=== PATIENT | female | born 1975 | race Caucasian/White ===

== ENCOUNTER 2016-08-30 16:25 | Emergency (ER) | payer BC ==
[2016-08-30] MEDS ORDERED: NS 0.9% 1000 ML* 1,000 ML IV ONE (17:43)
[2016-08-30] MEDS ORDERED: Pantoprazole IV* 40 MG IV ONE (17:44)
[2016-08-30] MEDS ORDERED: Sucralfate TAB* 1 GM PO ONE (17:44)
[2016-08-30 17:57] LABS: Hematocrit 40 % (35-47); Hemoglobin 13.6 g/dl (12.0-16.0); Mean Corpuscular HGB Conc 34 g/dl (31-36); Mean Corpuscular Hemoglobin 31 pg (27-31); Mean Corpuscular Volume 92 fL (80-97); Mean Platelet Volume 9 um3 (7.4-10.4); Red Blood Count 4.37 10^6/ul (4.0-5.4); Red Cell Distribution Width 15 % (10.5-15); White Blood Count 14.4 10^3/ul (3.5-10.8)
[2016-08-30 18:07] LABS: Urine Bacteria 1+ (Absent); Urine Bilirubin Negative (Negative); Urine Glucose Negative (Negative); Urine Nitrite Positive (Negative)
[2016-08-30 18:09] LABS: Troponin I 0.03 ng/mL (<0.04)
[2016-08-30 18:10] LABS: Albumin 3.7 g/dL (3.2-5.2); C Reactive Protein 3.26 mg/L (< 5.00); EGFR African American 137.7 (>60); Potassium 3.2 mmol/L (3.5-5.0); Total Bilirubin 0.3 mg/dL (0.2-1.0); Total Protein 6.7 g/dL (6.4-8.9)
--- NOTE | 2016-08-30 20:12 | ED ---
Demetrice Marcano Janilya, scribed for Ernie Knight MD on 08/30/16 at 1738 . Abdominal Pain/Female - HPI Summary HPI Summary: A 41 y/[facility] w/ a gradual onset of intermittent CP that started a week and a half ago. It hurts to palpation and it radiates down to her chest and changes in character from dull and achy to sharp and burning. Pt reports CP has worsened in the last couple days. Pt also feels nauseated and has not eaten well recently. She vomits every time she has a food intake. Pt is currently on her period. PMHx asthma, arthritis, anxiety. - History of Current Complaint Chief Complaint: EDChestPainROMI Stated Complaint: CHEST PAIN Time Seen by Provider: 08/30/16 17:30 Hx Obtained From: Patient Hx Last Menstrual Period: current Onset/Duration: Gradual Onset, Lasting Days, Still Present Timing: Constant Severity Initially: Moderate Severity Currently: Moderate Pain Intensity: 8 Pain Scale Used: 0-10 Numeric Radiates: No Allergies/Adverse Reactions: Allergies Allergy/AdvReac Type Severity Reaction Status Date / Time Bee Venom Allergy Severe Anaphylatic Verified 03/10/16 18:40 Shock Eggs or Egg-derived Products Allergy Severe Anaphylatic Verified 03/10/16 18:40 Shock Peanut Oil Allergy Severe Anaphylatic Verified 03/10/16 18:40 Shock Raspberry Allergy Anaphylatic Verified 03/10/16 18:40 Shock mycin based meds Allergy Eyes Uncoded 05/13/16 17:19 Itchy/Swollen/Red/Watery PMH/Surg Hx/FS Hx/Imm Hx Endocrine/Hematology History: Denies: Hx Anticoagulant Therapy, Hx Diabetes, Hx Thyroid Disease Cardiovascular History: Denies: Hx Congestive Heart Failure, Hx Deep Vein Thrombosis, Hx Hypertension , Hx Myocardial Infarction, Hx Pacemaker/ICD Respiratory History: Reports: Hx Asthma Denies: Hx Chronic Obstructive Pulmonary Disease (COPD), Hx Lung Cancer, Hx Pneumonia, Hx Pulmonary Embolism GI History: Denies: Hx Gall Bladder Disease, Hx Gastrointestinal Bleed, Hx Ulcer, Hx Urosepsis History: Denies: Hx Kidney Stones, Hx Renal Disease Sensory History: Reports: Hx Contacts or Glasses Opthamlomology History: Reports: Hx Contacts or Glasses Neurological History: Denies: Hx Dementia, Hx Migraine, Hx Seizures, Hx Transient Ischemic Attacks (TIA) Psychiatric History: Reports: Hx Anxiety - On hydroxyzine. Denies: Hx Depression, Hx Schizophrenia, Hx Bipolar Disorder - Surgical History Surgery Procedure, Year, and Place: 1999 TUBAL LIGATION Infectious Disease History: Yes Infectious Disease History: Reports: Hx of Known/Suspected MRSA - skin infection Denies: Hx Clostridium Difficile, Hx Hepatitis, Hx Human Immunodeficiency Virus (HIV), Hx Shingles, Hx Tuberculosis, History Other Infectious Disease, Traveled Outside the [place] in Last 30 Days - Family History Known Family History: Positive: Hypertension Negative: Cardiac Disease - Social History Alcohol Use: None Substance Use Type: Reports: None Substance Use Comment - Amount & Last Used: None x 5 years Smoking Status (MU): Light Every Day Tobacco Smoker Type: Cigarettes Amount Used/How Often: about 1/2 ppd Review of Systems Positive: Abdominal Pain, Vomiting, Nausea All Other Systems Reviewed And Are Negative: Yes Physical Exam Triage Information Reviewed: Yes Vital Signs On Initial Exam: Initial Vitals Temp Pulse Resp BP Pulse Ox 97.8 F 80 16 141/70 95 08/30/16 16:26 08/30/16 16:26 08/30/16 16:26 08/30/16 16:26 08/30/16 16:26 Vital Signs Reviewed: Yes Appearance: Positive: Well-Appearing, No Pain Distress Skin: Positive: Warm, Skin Color Reflects Adequate Perfusion, Dry Head/Face: Positive: Normal Head/Face Inspection Eyes: Positive: Normal ENT: Positive: Normal ENT inspection Neck: Positive: Supple, Nontender Respiratory/Lung Sounds: Positive: Clear to Auscultation, Breath Sounds Present Cardiovascular: Positive: RRR Abdomen Description: Negative: Nontender - Tenderness in epigastrium and in LUQ and RUQ Bowel Sounds: Positive: Present Musculoskeletal: Positive: Normal Neurological: Positive: Normal Psychiatric: Positive: Normal, Affect/Mood Appropriate - [place] Coma Scale Coma Scale Total: 15 Diagnostics - Vital Signs Vital Signs Temp Pulse Resp BP Pulse Ox 08/30/16 16:26 97.8 F 80 16 141/70 95 - Laboratory Lab Results: Lab Results 08/30/16 08/30/16 08/30/16 Range/Units 17:20 17:20 17:20 WBC 14.4 H (3.5-10.8) 10^3/ul RBC 4.37 (4.0-5.4) 10^6/ul Hgb 13.6 (12.0-16.0) g/dl Hct 40 (35-47) % MCV 92 (80-97) fL MCH 31 (27-31) pg MCHC 34 (31-36) g/dl RDW 15 (10.5-15) % Plt Count 252 (150-450) 10^3/ul MPV 9 (7.4-10.4) um3 Neut % (Auto) 74.6 (38-83) % Lymph % (Auto) 16.3 L (25-47) % [place] % (Auto) 7.5 (1-9) % Eos % (Auto) 1.1 (0-6) % Baso % (Auto) 0.5 (0-2) % Absolute Neuts (auto) 10.7 H (1.5-7.7) 10^3/ul Absolute Lymphs (auto) 2.3 (1.0-4.8) 10^3/ul Absolute Monos (auto) 1.1 H (0-0.8) 10^3/ul Absolute Eos (auto) 0.2 (0-0.6) 10^3/ul Absolute Basos (auto) 0.1 (0-0.2) 10^3/ul Absolute Nucleated RBC 0.01 10^3/ul Nucleated RBC % 0 Sodium 137 (133-145) mmol/L Potassium 3.2 L (3.5-5.0) mmol/L Chloride 105 (101-111) mmol/L Carbon Dioxide 28 (22-32) mmol/L Anion Gap 4 (2-11) mmol/L BUN 11 (6-24) mg/dL Creatinine 0.61 (0.51-0.95) mg/dL Est GFR ( Amer) 137.7 (>60) Est GFR (Non-Af Amer) 107.0 (>60) BUN/Creatinine Ratio 18.0 (8-20) Glucose 84 (70-100) mg/dL Lactic Acid (0.5-2.0) mmol/L Calcium 9.0 (8.6-10.3) mg/dL Total Bilirubin 0.30 (0.2-1.0) mg/dL AST 16 (13-39) U/L ALT 12 (7-52) U/L Alkaline Phosphatase 46 (34-104) U/L Troponin I 0.03 (<0.04) ng/mL C-Reactive Protein 3.26 (< 5.00) mg/L Total Protein 6.7 (6.4-8.9) g/dL Albumin 3.7 (3.2-5.2) g/dL Globulin 3.0 (2-4) g/dL Albumin/Globulin Ratio 1.2 (1-3) Lipase 27 (11.0-82.0) U/L Urine Color Yellow Urine Appearance Clear Urine pH 6.0 (5-9) Ur Specific [place] 1.008 L (1.010-1.030) Urine Protein Negative (Negative) Urine Ketones Negative (Negative) Urine Blood 1+ H (Negative) Urine Nitrate Positive H (Negative) Urine Bilirubin Negative (Negative) Urine Urobilinogen Negative (Negative) Ur Leukocyte Esterase 1+ H (Negative) Urine WBC (Auto) 1+(6-10/hpf) H (Absent) Urine RBC (Auto) Trace(0-2/hpf) (Absent) Ur Squamous Epith Cells Present H (Absent) Urine Bacteria 1+ H (Absent) Urine Glucose Negative (Negative) 08/30/16 Range/Units 17:20 WBC (3.5-10.8) 10^3/ul RBC (4.0-5.4) 10^6/ul Hgb (12.0-16.0) g/dl Hct (35-47) % MCV (80-97) fL MCH (27-31) pg MCHC (31-36) g/dl RDW (10.5-15) % Plt Count (150-450) 10^3/ul MPV (7.4-10.4) um3 Neut % (Auto) (38-83) % Lymph % (Auto) (25-47) % [place] % (Auto) (1-9) % Eos % (Auto) (0-6) % Baso % (Auto) (0-2) % Absolute Neuts (auto) (1.5-7.7) 10^3/ul Absolute Lymphs (auto) (1.0-4.8) 10^3/ul Absolute Monos (auto) (0-0.8) 10^3/ul Absolute Eos (auto) (0-0.6) 10^3/ul Absolute Basos (auto) (0-0.2) 10^3/ul Absolute Nucleated RBC 10^3/ul Nucleated RBC % Sodium (133-145) mmol/L Potassium (3.5-5.0) mmol/L Chloride (101-111) mmol/L Carbon Dioxide (22-32) mmol/L Anion Gap (2-11) mmol/L BUN (6-24) mg/dL Creatinine (0.51-0.95) mg/dL Est GFR ( Amer) (>60) Est GFR (Non-Af Amer) (>60) BUN/Creatinine Ratio (8-20) Glucose (70-100) mg/dL Lactic Acid 0.3 L (0.5-2.0) mmol/L Calcium (8.6-10.3) mg/dL Total Bilirubin (0.2-1.0) mg/dL AST (13-39) U/L ALT (7-52) U/L Alkaline Phosphatase (34-104) U/L Troponin I (<0.04) ng/mL C-Reactive Protein (< 5.00) mg/L Total Protein (6.4-8.9) g/dL Albumin (3.2-5.2) g/dL Globulin (2-4) g/dL Albumin/Globulin Ratio (1-3) Lipase (11.0-82.0) U/L Urine Color Urine Appearance Urine pH (5-9) Ur Specific [place] (1.010-1.030) Urine Protein (Negative) Urine Ketones (Negative) Urine Blood (Negative) Urine Nitrate (Negative) Urine Bilirubin (Negative) Urine Urobilinogen (Negative) Ur Leukocyte Esterase (Negative) Urine WBC (Auto) (Absent) Urine RBC (Auto) (Absent) Ur Squamous Epith Cells (Absent) Urine Bacteria (Absent) Urine Glucose (Negative) Result Diagrams: 08/30/16 17:20 08/30/16 17:20 Lab Statement: Any lab studies that have been ordered have been reviewed, and results considered in the medical decision making process. - EKG 1633 Cardiac Rate: NL - at 68 bpm EKG Rhythm: Sinus Rhythm Abdominal Pain Fem Course/Dx - Course Course Of Treatment: Vanna Hall presented with several days of epigastric pain and nausea. She was quite tender in the epigastriom. She was rehydrated, treated symptomatically and her labs were checked. Her W/U was negative and she felt improved after meds and I will give her prilosec for a few days to see if that improves the situation. Her urine came back positive for nitrates but she is compleetely asymptomatic and we decided to wait for C&S. - Diagnoses Provider Diagnoses: Epigastric abdominal pain Discharge - Discharge Plan Condition: Stable Disposition: HOME Prescriptions: Omeprazole CAP* [Prilosec CAP* 20 MG] 20 mg PO BID #20 cap.dr Patient Education Materials: Epigastric Pain (ED) Referrals: Rob Flores MD [Primary Care Provider] - Additional Instructions: Your urine culture was sent to lab. If the result shows that you need antibiotics, you will be contacted. Follow up with your primary care provider if symptoms persist or worsen. The documentation as recorded by the Demetrice mccarty Janilya accurately reflects the service I personally performed and the decisions made by me, Ernie Knight MD.
[2016-08-30 21:33] VITALS: BP 102/57
--- NOTE | 2016-09-02 08:35 | PN ---
Progress Note - Progress Note Note: Patient discharged on Bactrim, which is sensitive on cultures. No further action needed.
== END 2016-08-30 21:33 | disposition home or self-care (01) ==
LOC: ED 16:25
DX: R10.13 Epigastric pain (principal); R07.9 Chest pain, unspecified; R11.0 Nausea
CPT/HCPCS: 36415; 80053; 81003; 81015; 83605; 83690; 84484; 85025; 86140; 86703; 87077; 87086; 87186; 93005; 96361; 96374; 99283; A9270-GY

== ENCOUNTER 2017-05-07 17:47 | Emergency (ER) | payer SELFPAY ==
[2017-05-07] MEDS ORDERED: Ketorolac INJ* 30 MG/ML 1 ML VIAL IV ONE (19:25)
[2017-05-07] MEDS ORDERED: Ondansetron INJ* 2 MG/ML VIAL IV ONE (19:25)
[2017-05-07] MEDS: NS 0.9% 1000 ML* 2,000 ML IV ONE ×2 (19:34→19:35)
[2017-05-07 19:49] LABS: Hematocrit 37 % (35-47); Hemoglobin 12.2 g/dl (12.0-16.0); Mean Corpuscular HGB Conc 33 g/dl (31-36); Mean Corpuscular Hemoglobin 26 pg (27-31); Mean Corpuscular Volume 80 fL (80-97); Mean Platelet Volume 8 um3 (7.4-10.4); Red Blood Count 4.66 10^6/ul (4.0-5.4); Red Cell Distribution Width 22 % (10.5-15); White Blood Count 20.9 10^3/ul (3.5-10.8)
[2017-05-07 19:50] LABS: Add Diff/Slide Review? Slide Review Added; Comments Flag Yes
[2017-05-07 20:06] LABS: Urine Bacteria 1+ (Absent); Urine Bilirubin Negative (Negative); Urine Glucose Negative (Negative); Urine Nitrite Negative (Negative)
[2017-05-07 20:07] LABS: ALT 13 U/L (7-52); AST 18 U/L (13-39); Albumin 3.6 g/dL (3.2-5.2); Alkaline Phosphatase 78 U/L (34-104); Anion Gap 11 mmol/L (2-11); BUN/Creatinine Ratio 13.5 (8-20); Blood Urea Nitrogen 12 mg/dL (6-24); C Reactive Protein 198.74 mg/L (< 5.00); CO2 Carbon Dioxide 26 mmol/L (22-32); Calcium 8.9 mg/dL (8.6-10.3); Chloride 94 mmol/L (101-111); EGFR African American 88.6 (>60); EGFR Non-African American 68.9 (>60); Globulin 4.2 g/dL (2-4); Glucose 99 mg/dL (70-100); Lipase < 10 U/L (11.0-82.0); Potassium 2.8 mmol/L (3.5-5.0); Sodium 131 mmol/L (133-145); Total Protein 7.8 g/dL (6.4-8.9)
[2017-05-07 20:31] LABS: Hypochromasia 1+; Immature Granulocytes 22 % (0-9); Neutrophil % 56 % (38-83)
[2017-05-07] MEDS ORDERED: cefTRIAXone(*) 1 GM in NS 0.9% 50 ML* 50 ML IVPB ONE (20:33)
[2017-05-07] MEDS ORDERED: NS 0.9% 1000 ML* 2,000 ML IV ONE (21:04)
--- NOTE | 2017-05-07 21:36 | RAD ---
INDICATION: Bilateral flank pain, fever and urinary tract infection. COMPARISON: Comparison is made with a prior CT of the abdomen and pelvis from March 08, 2012. TECHNIQUE: A CT scan of the abdomen and pelvis was performed without intravenous or oral contrast. Contiguous axial sections were obtained from the lung bases through the symphysis pubis. Images were reconstructed in the coronal and sagittal planes. FINDINGS: The lung bases are clear. No pleural effusion is present. The liver appears mildly enlarged. The spleen is within normal limits in size. No significant focal abnormality is seen on this noncontrast study. The gallbladder appears contracted. No calcified gallstones are seen. The pancreas is normal in size. The adrenal glands appear to be within normal limits. The left kidney appears normal. The right kidney appears enlarged. There is perinephric stranding. No renal calculi or hydronephrosis is seen. No ureteral or bladder calculi are seen. The aorta is normal in caliber with mild calcific plaque present. There are mildly prominent retroperitoneal lymph nodes in the left periaortic region. The stomach, small and large bowel appear nondistended. The appendix is not well visualized. There is an oval-shaped calcific density in the right lower quadrant likely representing a pill within the bowel. There is no evidence for diverticulitis or colitis. The uterus is normal in size and retroverted. There is a trace amount of free intraperitoneal fluid present dependently within the pelvis. No free intraperitoneal air is seen. No significant focal osseous abnormality is seen. IMPRESSION: 1. THERE IS ENLARGEMENT OF THE RIGHT KIDNEY WITH PERINEPHRIC STRANDING SUSPICIOUS FOR PYELONEPHRITIS LESS LIKELY RECENT PASSAGE OF A CALCULUS. RECOMMEND CLINICAL CORRELATION. 2. MILDLY PROMINENT RETROPERITONEAL LYMPH NODES IN THE UPPER ABDOMEN.
[2017-05-07 21:59] VITALS: BP 113/66
[2017-05-07] MEDS ORDERED: Potassium Chlor TAB* 20 MEQ TAB.ER PO ONE (22:17)
[2017-05-07] MEDS ORDERED: Sulfamethox/Trimethoprim DS 800/160* TAB PO ONE ×2 (22:31)
--- NOTE | 2017-05-07 22:37 | ED ---
Dea Marcano Thomas, scribed for Derek Bauer MD on 05/07/17 at 1923 . GI/ HPI - HPI Summary HPI Summary: The pt is a 42 y/o F presenting to the ED c/o generalized malaise that began four days ago. She then developed dysuria and urinary frequency three days ago. Pt additionally c/o fever, chills, bilateral flank pain, productive cough, fatigue, chest congestion, rhinorrhea, lightheadedness (onset this afternoon), myalgia (onset this AM), CARRILLO (onset two days ago), and RLQ abd pain. She complains of neck pain that is aggravated by movement. The pt rates her pain level 6/10. She has been taking ibuprofen for her pain. She has experienced nausea and vomiting for the last three days and she cannot keep anything down. She is chronically constipated and takes Miralax every day. Pt denies bloody stools and vaginal discharge. There is no Hx of kidney stones or abdominal surgeries. LNMP 2 weeks ago. 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 - History of Current Complaint Chief Complaint: EDAbdPain Time Seen by Provider: 05/07/17 19:11 Stated Complaint: VOMITING/ABD PAIN Hx Obtained From: Patient Hx Last Menstrual Period: current Onset/Duration: Started Days Ago - malaise onset four days ago, Still Present, Worse Since - progressively worse Timing: Constant Current Severity: Moderate Pain Intensity: 6 Associated Signs and Symptoms: Positive: Nausea, Vomiting, Constipation - chronically, Fever, Dysuria, Flank Pain - bilateral, Chills, Lightheadedness, Abdominal Pain - RLQ, Cough - productive, Other: - Fatigue, chest congestion, rhinorrhea, myalgia, CARRILLO, neck pain. Negative: Discharge, Blood w/Stool Aggravating Factor(s): Nothing Alleviating Factor(s): Nothing - Allergy/Home Medications Allergies/Adverse Reactions: Allergies Allergy/AdvReac Type Severity Reaction Status Date / Time Bee Venom Allergy Severe Anaphylatic Verified 03/10/16 18:40 Shock Eggs or Egg-derived Products Allergy Severe Anaphylatic Verified 03/10/16 18:40 Shock Peanut Oil Allergy Severe Anaphylatic Verified 03/10/16 18:40 Shock Raspberry Allergy Anaphylatic Verified 03/10/16 18:40 Shock mycin based meds Allergy Eyes Uncoded 05/13/16 17:19 Itchy/Swollen/Red/Watery PMH/Surg Hx/FS Hx/Imm Hx Previously Healthy: No Endocrine/Hematology History: Denies: Hx Anticoagulant Therapy, Hx Diabetes, Hx Thyroid Disease Cardiovascular History: Denies: Hx Congestive Heart Failure, Hx Deep Vein Thrombosis, Hx Hypertension , Hx Myocardial Infarction, Hx Pacemaker/ICD Respiratory History: Reports: Hx Asthma Denies: Hx Chronic Obstructive Pulmonary Disease (COPD), Hx Lung Cancer, Hx Pneumonia, Hx Pulmonary Embolism GI History: Denies: Hx Gall Bladder Disease, Hx Gastrointestinal Bleed, Hx Ulcer, Hx Urosepsis History: Denies: Hx Kidney Stones, Hx Renal Disease Sensory History: Reports: Hx Contacts or Glasses Opthamlomology History: Reports: Hx Contacts or Glasses Neurological History: Denies: Hx Dementia, Hx Migraine, Hx Seizures, Hx Transient Ischemic Attacks (TIA) Psychiatric History: Reports: Hx Anxiety - On hydroxyzine. Denies: Hx Depression, Hx Schizophrenia, Hx Bipolar Disorder - Surgical History Surgery Procedure, Year, and Place: 1999 TUBAL LIGATION Infectious Disease History: No Infectious Disease History: Reports: Hx of Known/Suspected MRSA - skin infection Denies: Hx Clostridium Difficile, Hx Hepatitis, Hx Human Immunodeficiency Virus (HIV), Hx Shingles, Hx Tuberculosis, History Other Infectious Disease, Traveled Outside the [place] in Last 30 Days - Family History Known Family History: Positive: Hypertension Negative: Cardiac Disease - Social History Alcohol Use: None Hx Substance Use: No Substance Use Type: Reports: None Substance Use Comment - Amount & Last Used: None x 5 years Hx Tobacco Use: Yes Smoking Status (MU): Light Every Day Tobacco Smoker Type: Cigarettes Amount Used/How Often: about 1/2 ppd Review of Systems Positive: Fever, Chills, Fatigue Positive: Nasal Discharge Positive: Cough - productive, Other - Chest congestion Positive: Abdominal Pain - RLQ, Vomiting, Nausea, Other - Chronic constipation; NEGATIVE: bloody stools Positive: dysuria, flank pain - bilateral, other - Bilateral flank pain. Negative: discharge Positive: Myalgia, Other - Neck pain aggravated by movement Neurological: Other - Lightheadedness All Other Systems Reviewed And Are Negative: Yes Physical Exam Triage Information Reviewed: Yes Vital Signs On Initial Exam: Initial Vitals Temp Pulse Resp BP Pulse Ox 100.6 F 88 20 130/66 100 05/07/17 17:54 05/07/17 17:54 05/07/17 17:54 05/07/17 17:54 05/07/17 17:54 Vital Signs Reviewed: Yes Appearance: Positive: No Pain Distress, Ill-Appearing - mildly to moderately Skin: Positive: Warm, Skin Color Reflects Adequate Perfusion, Dry Head/Face: Positive: Normal Head/Face Inspection Eyes: Positive: EOMI, CELESTE ENT: Positive: Normal ENT inspection Neck: Positive: Supple, Nontender Respiratory/Lung Sounds: Positive: Clear to Auscultation, Breath Sounds Present Cardiovascular: Positive: RRR Abdomen Description: Positive: Soft, CVA Tenderness (R), CVA Tenderness (L), Other: - There is mild lower abdominal tenderness. Bowel Sounds: Positive: Present Musculoskeletal: Positive: Normal, Strength/ROM Intact Neurological: Positive: Normal, Sensory/Motor Intact, Alert, Oriented to Person Place, Time Psychiatric: Positive: Affect/Mood Appropriate - [place] Coma Scale Coma Scale Total: 15 Diagnostics - Vital Signs Vital Signs Temp Pulse Resp BP Pulse Ox 05/07/17 17:54 100.6 F 88 20 130/66 100 - Laboratory Lab Results: Lab Results 05/07/17 05/07/17 05/07/17 Range/Units 19:25 19:30 19:30 WBC 20.9 H (3.5-10.8) 10^3/ul RBC 4.66 (4.0-5.4) 10^6/ul Hgb 12.2 (12.0-16.0) g/dl Hct 37 (35-47) % MCV 80 (80-97) fL MCH 26 L (27-31) pg MCHC 33 (31-36) g/dl RDW 22 H (10.5-15) % Plt Count 274 (150-450) 10^3/ul MPV 8 (7.4-10.4) um3 Immature Gran % (Auto) 22 H (0-9) % Neut % (Auto) 80.8 (38-83) % Lymph % (Auto) 6.9 L (25-47) % [place] % (Auto) 11.2 H (1-9) % Eos % (Auto) 0.3 (0-6) % Baso % (Auto) 0.8 (0-2) % Absolute Neuts (auto) 16.9 H (1.5-7.7) 10^3/ul Absolute Lymphs (auto) 1.5 (1.0-4.8) 10^3/ul Absolute Monos (auto) 2.4 H (0-0.8) 10^3/ul Absolute Eos (auto) 0.1 (0-0.6) 10^3/ul Absolute Basos (auto) 0.2 (0-0.2) 10^3/ul Absolute Nucleated RBC 0.01 10^3/ul Neutrophils % 56 (38-83) % Band Neutrophils % 22 H (0-8) % Lymphocytes % 7 L (25-47) % Monocytes % 14 H (0-13) % Basophils % 1 (0-2) % Nucleated RBC % 0 Normal RBC Morphology Not Reportable Hypochromasia 1+ Sodium 131 L (133-145) mmol/L Potassium 2.8 L (3.5-5.0) mmol/L Chloride 94 L (101-111) mmol/L Carbon Dioxide 26 (22-32) mmol/L Anion Gap 11 (2-11) mmol/L BUN 12 (6-24) mg/dL Creatinine 0.89 (0.51-0.95) mg/dL Est GFR ( Amer) 88.6 (>60) Est GFR (Non-Af Amer) 68.9 (>60) BUN/Creatinine Ratio 13.5 (8-20) Glucose 99 (70-100) mg/dL Lactic Acid (0.5-2.0) mmol/L Calcium 8.9 (8.6-10.3) mg/dL Total Bilirubin 0.40 (0.2-1.0) mg/dL AST 18 (13-39) U/L ALT 13 (7-52) U/L Alkaline Phosphatase 78 (34-104) U/L C-Reactive Protein 198.74 H (< 5.00) mg/L Total Protein 7.8 (6.4-8.9) g/dL Albumin 3.6 (3.2-5.2) g/dL Globulin 4.2 H (2-4) g/dL Albumin/Globulin Ratio 0.9 L (1-3) Lipase < 10 L (11.0-82.0) U/L Beta HCG, Quant 0.84 mIU/mL Urine Color Yellow Urine Appearance Cloudy Urine pH 5.0 (5-9) Ur Specific [place] 1.009 L (1.010-1.030) Urine Protein 1+(30 mg/dl) H (Negative) Urine Ketones Trace H (Negative) Urine Blood 2+ H (Negative) Urine Nitrate Negative (Negative) Urine Bilirubin Negative (Negative) Urine Urobilinogen Negative (Negative) Ur Leukocyte Esterase 2+ H (Negative) Urine WBC (Auto) 3+(>20/hpf) H (Absent) Urine RBC (Auto) 2+(6-10/hpf) H (Absent) Ur Squamous Epith Cells Present H (Absent) Ur Transition Epith Cell Present H (Absent) Urine Bacteria 1+ H (Absent) Urine Glucose Negative (Negative) 05/07/17 Range/Units 19:30 WBC (3.5-10.8) 10^3/ul RBC (4.0-5.4) 10^6/ul Hgb (12.0-16.0) g/dl Hct (35-47) % MCV (80-97) fL MCH (27-31) pg MCHC (31-36) g/dl RDW (10.5-15) % Plt Count (150-450) 10^3/ul MPV (7.4-10.4) um3 Immature Gran % (Auto) (0-9) % Neut % (Auto) (38-83) % Lymph % (Auto) (25-47) % [place] % (Auto) (1-9) % Eos % (Auto) (0-6) % Baso % (Auto) (0-2) % Absolute Neuts (auto) (1.5-7.7) 10^3/ul Absolute Lymphs (auto) (1.0-4.8) 10^3/ul Absolute Monos (auto) (0-0.8) 10^3/ul Absolute Eos (auto) (0-0.6) 10^3/ul Absolute Basos (auto) (0-0.2) 10^3/ul Absolute Nucleated RBC 10^3/ul Neutrophils % (38-83) % Band Neutrophils % (0-8) % Lymphocytes % (25-47) % Monocytes % (0-13) % Basophils % (0-2) % Nucleated RBC % Normal RBC Morphology Hypochromasia Sodium (133-145) mmol/L Potassium (3.5-5.0) mmol/L Chloride (101-111) mmol/L Carbon Dioxide (22-32) mmol/L Anion Gap (2-11) mmol/L BUN (6-24) mg/dL Creatinine (0.51-0.95) mg/dL Est GFR ( Amer) (>60) Est GFR (Non-Af Amer) (>60) BUN/Creatinine Ratio (8-20) Glucose (70-100) mg/dL Lactic Acid 0.6 (0.5-2.0) mmol/L Calcium (8.6-10.3) mg/dL Total Bilirubin (0.2-1.0) mg/dL AST (13-39) U/L ALT (7-52) U/L Alkaline Phosphatase (34-104) U/L C-Reactive Protein (< 5.00) mg/L Total Protein (6.4-8.9) g/dL Albumin (3.2-5.2) g/dL Globulin (2-4) g/dL Albumin/Globulin Ratio (1-3) Lipase (11.0-82.0) U/L Beta HCG, Quant mIU/mL Urine Color Urine Appearance Urine pH (5-9) Ur Specific [place] (1.010-1.030) Urine Protein (Negative) Urine Ketones (Negative) Urine Blood (Negative) Urine Nitrate (Negative) Urine Bilirubin (Negative) Urine Urobilinogen (Negative) Ur Leukocyte Esterase (Negative) Urine WBC (Auto) (Absent) Urine RBC (Auto) (Absent) Ur Squamous Epith Cells (Absent) Ur Transition Epith Cell (Absent) Urine Bacteria (Absent) Urine Glucose (Negative) Result Diagrams: 05/07/17 19:30 05/07/17 19:30 Lab Statement: Any lab studies that have been ordered have been reviewed, and results considered in the medical decision making process. - CT CT Abd/Pel CT Interpretation: Positive (See Comments) - 1. THERE IS ENLARGEMENT OF THE RIGHT KIDNEY WITH PERINEPHRIC STRANDING SUSPICIOUS FOR PYELONEPHRITIS LESS LIKELY RECENT PASSAGE OF A CALCULUS. RECOMMEND CLINICAL CORRELATION. 2. MILDLY PROMINENT RETROPERITONEAL LYMPH NODES IN THE UPPER ABDOMEN. ED physician has reviewed this report and agrees. CT Interpretation Completed By: Radiologist Re-Evaluation - Re-Evaluation First Eval Re-Evaluation Time: 20:43 Change: Unchanged Comment: She is still ill-appearing. GIGU Course/Dx - Course Course Of Treatment: BP noted and advised to follow up with PCP. Medications reviewed. LAB/CT RESULTS REVIEWED WITH THE PATIENT AND DISCUSSED ADMISSION. HOSPITALIST SAW PATIENT FOR ADMISSION; THE PATIENT DECLINED ADMISSION AND SIGNED OUT AMA. PATIENT WILL F/U WITH PMD; SHE WILL RETURN TO THE ED IF WORSE OR ANY QUESTIONS/CONCERNS. NO CRITICAL CARE TIME. - Diagnoses Provider Diagnoses: Pyelonephritis, UTI (urinary tract infection), Hypokalemia, Left against medical advice - Physician Notifications Discussed Care Of Patient With: Parish Herrera Time Discussed With Above Provider: 20:00 Instructed by Provider To: Other - I consulted with Parish Herrera NP, to admit the patient Discharge - Discharge Plan Condition: Guarded Disposition: HOME Prescriptions: Sulfamethox/Trimethoprim DS* [Bactrim DS 800/160 TAB*] 1 tab PO BID #20 tab Patient Education Materials: Urinary Tract Infection in Women (ED), Kidney Infection (ED), Hypokalemia (ED) Referrals: oRb Flores MD [Primary Care Provider] - Additional Instructions: FOLLOW UP WITH YOUR DOCTOR. SEE YOUR DOCTOR ON 05/10/17. GET YOUR BLOOD WORK RECHECKED WITH YOUR DOCTOR. RETURN TO THE EMERGENCY DEPARTMENT FOR ANY WORSENING OF YOUR CONDITION; FEVER, YOU FEEL ILL, YOU FEEL LIKE PASSING OUT OR QUESTIONS OR CONCERNS. The documentation as recorded by the Dea mccarty Thomas accurately reflects the service I personally performed and the decisions made by me, Derek Bauer MD.
--- NOTE | 2017-05-08 00:40 | CONS ---
CC: Dr. Flores * CONSULTATION REPORT: DATE OF CONSULT: 05/07/17 REASON FOR MEDICAL CONSULTATION: Evaluation for admission. HISTORY OF PRESENT ILLNESS: Ms. Hall is a 42-year-old female patient. She has a history of asthma, anxiety and arthritis. She comes in today, says over the last 2 to 3 days, she has not been feeling well. She has been having some hesitancy and urgency at the time of urination. She has been having some pain on the right side of her body most of the right flank area where she points. She says she has been having chills and the pain has been very intermittent coming and going in waves and she has been having some pelvic pain as well. She was concerned because she was vomiting. She felt warm today. Actually, she felt a little bit better today, but her coworker urged her to get evaluated in the ED and reluctantly she came into the ER. She was evaluated, ultimately was found to have pyelonephritis and bandemia. She appeared to have leukocytosis and all felt to be related to a urinary tract infection with pyelonephritis. We were initially asked to evaluate for admission. She denied any chest pain, denied any shortness of breath. She said she is eating now. She is feeling better now and denies having any vaginal discharge. Dr. Bauer evaluated the patient. He asked us to evaluate for admission. PAST MEDICAL HISTORY: Significant for: 1. Asthma. 2. Anxiety. 3. Arthritis. PAST SURGICAL HISTORY: She has had a tubal ligation. HOME MEDICATIONS: According to the old list that we have include: 1. Atarax 10 mg b.i.d. as needed. 2. Tramadol 50 mg 4 times a day as needed. 3. Bactrim 1 tablet p.o. b.i.d. in the past. 4. MiraLAX 17 g daily. 5. Omeprazole 20 mg p.o. b.i.d. 6. Mupirocin 1 application topically daily as needed. 7. Iron 1 tablet p.o. daily. 8. Ibuprofen 800 mg as needed daily. 9. Advair 1 puff inhaled b.i.d. 10. Flonase 2 sprays both nares daily. 11. Zyrtec 10 mg p.o. daily. 12. Albuterol 1 puff inhaled every 4 hours as needed. ALLERGIES TO MEDICATIONS: Include none, but she is allergic to BEES, EGGS, PEANUT OIL and RASPBERRY. FAMILY HISTORY: She says her parents are both healthy. She specifically denied them having any diabetes or heart attack or cancer. SOCIAL HISTORY: She is about a pack a day smoker. She drinks alcohol occasionally. Surrogate decision maker is her boyfriend. REVIEW OF SYSTEMS: There is no documented fever, but she does have a low-grade fever here of 100.6. She does admit to having chills. She denied any double vision. There was no ear discharge. She denied having any rhinorrhea, no sore throat, no thyroid enlargement. Denies having any chest pain. There is no orthopnea. There is no nocturnal dyspnea. She does admit to having some suprapubic abdominal discomfort and right-sided flank pain. She denies having any nausea, vomiting now, but she did have some previously. There was no dysuria, but there is urgency and hesitancy. She denies any loss of consciousness, no pruritus and no skin ulcerations. Review of 14 systems completed, all others are negative. PHYSICAL EXAMINATION: Vital Signs: Blood pressure 130/66, pulse of 88, respirations 20, her O2 sat was 100%, temperature was 100.6. General: At this time, Ms. Hall is a 42-year-old female patient. She is sitting in the ER stretcher. She appears to be well nourished, well developed. She does not appear to be in any acute distress. HEENT: Head is atraumatic. Eyes: EOMs are intact. Sclerae anicteric, not pale. Neck: Supple. Throat: Oral mucosa appears to be moist. No oropharyngeal erythema. Heart: Sounds S1 and S2. Regular rate and rhythm. No murmurs, rubs or gallops. Lungs: Clear to auscultation bilaterally. No wheezes, rales or rhonchi. Abdomen: Soft, it was flat. Bowel sounds were present. She did have some tenderness in the suprapubic area. She had no CVA tenderness. Neurologically, she is awake, she is alert and she is oriented x3. Her tongue is midline and booking agent are equal. She had no gross focal deficits. Her skin is intact. LABORATORY DATA/IMAGING STUDIES: Revealed a WBC of 20.9, RBC of 4.66, hemoglobin of 12.2, hematocrit of 37, platelet count of 274. She had a bandemia of 22%. Sodium was 131, potassium was 2.8, chloride of 94, bicarb 26, BUN 11, creatinine 0.89. Glucose 99, lactic 0.6, calcium 8.9, total bilirubin 0.4, AST 18, ALT 12. Her CRP was 198, albumin was 3.6, beta-hCG was 0.84. Urine showed 1+ protein, 2+ blood, 3+ leukocyte esterase, 2+ wbc, 1+ bacteria. She did have a CT of the abdomen and pelvis, which revealed enlargement of the right kidney with perinephritic stranding suspicious for pyelonephritis, less likely recent passage of a calculus. Recommend clinical correlation. Mild prominent retroperitoneal lymph nodes in the upper abdomen. Old medical records were reviewed. ASSESSMENT AND PLAN: Ms. Hall is a 42-year-old female patient coming in to the ER today with complaints of urinary hesitancy and urgency and left flank pain. On evaluation, was found to have what appears to be pyelonephritis. We were asked to evaluate for admission. I did, however, when going to evaluate the patient, she did not want to stay. So, I urged her to stay. I explained to her my concern was that she has a significant bandemia. I would recommend at least 24 hours of IV antibiotics, IV fluids. She said she is feeling better. She would like to go home. She understands and was able to verbalize the risk to me, which includes , septic shock, permanent disability, kidney dysfunction and she says that she was willing to sign out against medical advice. Again, I offered her admission. She said she is not willing to stay. She states that she is feeling better. She does verbalize to come back should she have any worsening fevers, should she be vomiting her antibiotics up , should she have any worsening pain or any other worrisome symptoms. I did explain to her to continue her meds for her asthma and her anxiety and arthritis. I did discuss this with Dr. Bauer and my attending. We did discuss again the importance of her staying; however, she is again on sound mind capable to make the decision. I discussed with Dr. Bauer that I would recommend giving her Bactrim per previous culture reports. I will replace her potassium, repeat her CBC and BMP on Wednesday and have her followup closely with Dr. Flores early next week and I did instruct the patient to refrain from going for work for at least 24 hours and she is willing to follow this plan. TIME SPENT: Time spent on the consult was 60 minutes, greater than half that time was spent [id number] with the patient obtaining my history and physical, the other half time was spent going over the plan of care with the patient and implementing the plan of care. I did discuss the plan of care with my attending , Dr. Woodall; he is in agreement. THOMPSON MARRERO NP [id number]/[facility] #: [id number] URBAN
--- NOTE | 2017-05-10 10:25 | PN ---
Progress Note - Progress Note Date of Service: 05/07/17 Note: Patient diagnosed with UTI, pyelonephrtitis. Preliminary urine culture results were positive for 75-100,000 e. coli. Placed on bactrim at d/c. Will wait for final culture susceptibility results. no further change required at this time.
== END 2017-05-07 22:41 | disposition home or self-care (01) ==
LOC: ED 17:47
DX: R11.2 Nausea with vomiting, unspecified (principal); K59.00 Constipation, unspecified; R50.9 Fever, unspecified; R10.84 Generalized abdominal pain; R42 Dizziness and giddiness; R10.31 Right lower quadrant pain; R05 Cough; F17.210 Nicotine dependence, cigarettes, uncomplicated
CPT/HCPCS: 36415; 74176; 80053; 81003; 81015; 83605; 83690; 84702; 85025; 86140; 87040; 87077; 87086; 87186; 96361; 96374; 96375; 99283; A9270-GY; J0696; J1885

== ENCOUNTER 2018-05-17 00:59 | Emergency (ER) | payer SELFPAY ==
[2018-05-17 01:07] VITALS: BP 128/88
--- NOTE | 2018-05-17 01:22 | ED ---
Medical Screening - HPI Summary HPI Summary: A 43 y/o F brought in by police presents for legal blood draw. Pt is handcuffed and has no health complaints. PMHx: LCH, broken toes. - History of Current Complaint Chief Complaint: EDGeneral Stated Complaint: LABS Time Seen by Provider: 05/17/18 01:19 Associated Signs and Symptoms: Negative PMH/Surg Hx/FS Hx/Imm Hx Previously Healthy: No Endocrine/Hematology History: Denies: Hx Anticoagulant Therapy, Hx Diabetes, Hx Thyroid Disease Cardiovascular History: Denies: Hx Congestive Heart Failure, Hx Deep Vein Thrombosis, Hx Hypertension , Hx Myocardial Infarction, Hx Pacemaker/ICD Respiratory History: Reports: Hx Asthma Denies: Hx Chronic Obstructive Pulmonary Disease (COPD), Hx Lung Cancer, Hx Pneumonia, Hx Pulmonary Embolism GI History: Denies: Hx Gall Bladder Disease, Hx Gastrointestinal Bleed, Hx Ulcer, Hx Urosepsis History: Denies: Hx Kidney Stones, Hx Renal Disease Sensory History: Reports: Hx Contacts or Glasses Opthamlomology History: Reports: Hx Contacts or Glasses Neurological History: Denies: Hx Dementia, Hx Migraine, Hx Seizures, Hx Transient Ischemic Attacks (TIA) Psychiatric History: Reports: Hx Anxiety - On hydroxyzine. Denies: Hx Depression, Hx Schizophrenia, Hx Bipolar Disorder - Surgical History Surgery Procedure, Year, and Place: 1999 TUBAL LIGATION Infectious Disease History: No Infectious Disease History: Reports: Hx of Known/Suspected MRSA - skin infection Denies: Hx Clostridium Difficile, Hx Hepatitis, Hx Human Immunodeficiency Virus (HIV), Hx Shingles, Hx Tuberculosis, History Other Infectious Disease, Traveled Outside the [place] in Last 30 Days - Family History Known Family History: Positive: Hypertension Negative: Cardiac Disease - Social History Occupation: Employed Full-time Lives: Alone Alcohol Use: None Hx Substance Use: No Substance Use Type: Reports: Marijuana Substance Use Comment - Amount & Last Used: None x 5 years Hx Tobacco Use: Yes Smoking Status (MU): Light Every Day Tobacco Smoker Type: Cigarettes Amount Used/How Often: about 1/2 ppd Review of Systems Negative: Fever Negative: Cough All Other Systems Reviewed And Are Negative: Yes Physical Exam - Summary Physical Exam Summary: VITAL SIGNS: Reviewed. GENERAL: Patient is a well-developed and nourished FEMALE. Pt is handcuffed. Patient is not in any acute respiratory distress. Pt is here for a legal blood draw and has no complaint. Physical Exam is unremarkable. HEAD AND FACE: No signs of trauma. No ecchymosis, hematomas or skull depressions. No sinus tenderness. EYES: PERRLA, EOMI x 2, No injected conjunctiva, no nystagmus. EARS: Hearing grossly intact. Ear canals and tympanic membranes are within normal limits. MOUTH: Oropharynx within normal limits. NECK: Supple, trachea is midline, no adenopathy, no JVD, no carotid bruit, no c- spine tenderness, neck with full ROM. CHEST: Symmetric, no tenderness at palpation LUNGS: Clear to auscultation bilaterally. No wheezing or crackles. CVS: Regular rate and rhythm, S1 and S2 present, no murmurs or gallops appreciated. ABDOMEN: Soft, non-tender. No signs of distention. No rebound no guarding, and no masses palpated. Bowel sounds are normal. EXTREMITIES: FROM in all major joints, no edema, no cyanosis or clubbing. NEURO: Alert and oriented x 3. No acute neurological deficits. Speech is normal and follows commands. SKIN: Dry and warm Triage Information Reviewed: Yes Vital Signs On Initial Exam: Initial Vitals Temp Pulse Resp BP Pulse Ox 97.3 F 72 16 128/88 99 05/17/18 01:02 05/17/18 01:02 05/17/18 01:02 05/17/18 01:02 05/17/18 01:02 Vital Signs Reviewed: Yes Diagnostics - Vital Signs Vital Signs Temp Pulse Resp BP Pulse Ox 05/17/18 01:02 97.3 F 72 16 128/88 99 - Laboratory Lab Statement: Any lab studies that have been ordered have been reviewed, and results considered in the medical decision making process. Course/Dx - Course Course Of Treatment: Pt is a 43 y/o F brought in by police for legal blood draw. Pt is in handcuffs. She has no physical complaints. Her physical exam is unremarkable. - Diagnoses Provider Diagnoses: Encounter for blood-alcohol and blood-drug test Discharge - Sign-Out/Discharge Documenting (check all that apply): Patient Departure - DC - Discharge Plan Condition: Stable Disposition: HOME Referrals: Rob Flores MD [Primary Care Provider] - Additional Instructions: You were seen for a legal blood draw. Please return to the ED if you experience new or worsening symptoms. - Attestation Statements Document Initiated by Scribe: Yes Documenting Scribe: Yamil Guerrero Provider For Whom Scribe is Documenting (Include Credential): Dr. Sunshine Dawkins MD Scribe Attestation: aYmil Marcano, scribed for Dr. Sunshine Dawkins MD on 05/17/18 at 0213.
== END 2018-05-17 01:24 | disposition home or self-care (01) ==
LOC: ED 00:59
DX: Z04.89 Encounter for examination and observation for other specified reasons (principal); F17.210 Nicotine dependence, cigarettes, uncomplicated
CPT/HCPCS: 99281

== ENCOUNTER 2019-03-19 20:29 | Emergency (ER) | payer SELFPAY ==
--- NOTE | 2019-03-19 20:49 | ED ---
Allergic Reaction/Systemic - HPI Summary HPI Summary: Patient is a 44 y/o F presenting to ED with complaints of having been stung in the middle of her back by a bee while she was mowing her lawn. Patient reports allergy to bees. Incident occurred at 1999 today, 03/19/19. She notes pain at the sting site but denies difficulty speaking, o2 sats are 100% on RA. Patient did not take any medications before coming here as she states she could not find her epi-pen. Patient takes albuterol, allergy medications. On triage, pain is rated 8/10. Nothing is noted to aggravate/alleviate Sx. Home medications and allergies are reviewed. - History of Current Complaint Chief Complaint: EDAllergicReaction Time Seen by Provider: 03/19/19 20:36 Hx Obtained From: Patient Hx Last Menstrual Period: current Onset/Duration: Started hours ago - 199903/19/19 onset Timing: Lasting Hours - 199903/19/19 onset Severity Currently: Severe Pain Intensity: 8 Pain Scale Used: 0-10 Numeric Location: Discrete @ - upper back Aggravating Factor(s): Nothing Alleviating Factor(s): Nothing Associated Signs And Symptoms: Positive: Other: - negative - difficulty speaking. Negative: Difficulty Breathing - Allergies/Home Medications Allergies/Adverse Reactions: Allergies Allergy/AdvReac Type Severity Reaction Status Date / Time bee pollen Allergy Anaphylatic Verified 05/17/18 01:09 Shock Egg Derived Allergy Anaphylatic Verified 05/17/18 01:09 Shock peanut oil Allergy Anaphylatic Verified 05/17/18 01:09 Shock raspberry Allergy Anaphylatic Verified 05/17/18 01:09 Shock mycin based med Allergy Eyes Uncoded 05/17/18 01:09 Itchy/Swollen/Red/Watery PMH/Surg Hx/FS Hx/Imm Hx Endocrine/Hematology History: Denies: Hx Anticoagulant Therapy, Hx Diabetes, Hx Thyroid Disease Cardiovascular History: Denies: Hx Congestive Heart Failure, Hx Deep Vein Thrombosis, Hx Hypertension , Hx Myocardial Infarction, Hx Pacemaker/ICD Respiratory History: Reports: Hx Asthma Denies: Hx Chronic Obstructive Pulmonary Disease (COPD), Hx Lung Cancer, Hx Pneumonia, Hx Pulmonary Embolism GI History: Denies: Hx Gall Bladder Disease, Hx Gastrointestinal Bleed, Hx Ulcer, Hx Urosepsis History: Denies: Hx Kidney Stones, Hx Renal Disease Sensory History: Reports: Hx Contacts or Glasses Opthamlomology History: Reports: Hx Contacts or Glasses Neurological History: Denies: Hx Dementia, Hx Migraine, Hx Seizures, Hx Transient Ischemic Attacks (TIA) Psychiatric History: Reports: Hx Anxiety - On hydroxyzine. Denies: Hx Depression, Hx Schizophrenia, Hx Bipolar Disorder - Surgical History Surgery Procedure, Year, and Place: 1999 TUBAL LIGATION Infectious Disease History: No Infectious Disease History: Reports: Hx of Known/Suspected MRSA - skin infection Denies: Hx Clostridium Difficile, Hx Hepatitis, Hx Human Immunodeficiency Virus (HIV), Hx Shingles, Hx Tuberculosis, History Other Infectious Disease, Traveled Outside the [place] in Last 30 Days - Family History Known Family History: Positive: Hypertension Negative: Cardiac Disease - Social History Alcohol Use: None Hx Substance Use: No Substance Use Type: Reports: Marijuana Substance Use Comment - Amount & Last Used: None x 5 years Hx Tobacco Use: Yes Smoking Status (MU): Light Every Day Tobacco Smoker Type: Cigarettes Amount Used/How Often: about 1/2 ppd Review of Systems ENT: Other - negative - difficulty speaking Respiratory: Other - negative - no difficulty breathing, o2 sats 100 Musculoskeletal: Other - positive - bee sting, pain at upper back All Other Systems Reviewed And Are Negative: Yes Physical Exam - Summary Physical Exam Summary: VITAL SIGNS: Reviewed. GENERAL: Patient is a well-developed and nourished female who is lying comfortable in the stretcher. Patient is not in any acute respiratory distress. HEAD AND FACE: No signs of trauma. No ecchymosis, hematomas or skull depressions. No sinus tenderness. EYES: PERRLA, EOMI x 2, No injected conjunctiva, no nystagmus. EARS: Hearing grossly intact. Ear canals and tympanic membranes are within normal limits. MOUTH: Oropharynx within normal limits. NECK: Supple, trachea is midline, no adenopathy, no JVD, no carotid bruit, no c- spine tenderness, neck with full ROM CHEST: Symmetric, no tenderness at palpation LUNGS: Clear to auscultation bilaterally. No wheezing or crackles. CVS: Regular rate and rhythm, S1 and S2 present, no murmurs or gallops appreciated. ABDOMEN: Soft, non-tender. No signs of distention. No rebound no guarding, and no masses palpated. Bowel sounds are normal. EXTREMITIES: FROM in all major joints, no edema, no cyanosis or clubbing. NEURO: Alert and oriented x 3. No acute neurological deficits. Speech is normal and follows commands. SKIN: Dry and warm; small localized red area at the middle of the upper back Triage Information Reviewed: Yes Vital Signs On Initial Exam: Initial Vitals Temp Pulse Resp BP Pulse Ox 98.5 F 72 16 117/74 100 03/19/19 20:33 03/19/19 20:33 03/19/19 20:33 03/19/19 20:33 03/19/19 20:33 Vital Signs Reviewed: Yes Diagnostics - Vital Signs Vital Signs Temp Pulse Resp BP Pulse Ox 03/19/19 20:36 71 98 03/19/19 20:35 72 19 117/74 99 03/19/19 20:33 98.5 F 72 16 117/74 100 - Laboratory Lab Statement: Any lab studies that have been ordered have been reviewed, and results considered in the medical decision making process. Re-Evaluation - Re-Evaluation First Eval Re-Evaluation Time: 22:20 Change: Improved Comment: Patient reports improvement of Sx and has a desire to leave. She was prescribed prednisone and atarax. Patient to follow up with PCP within three days. She is agreeable with plan as discussed. Allergic Reaction Course/Dx - Course Course Of Treatment: Patient is a 44 y/o F presenting to ED with complaints of having been stung in the middle of her back by a bee while she was mowing her lawn. Patient reports allergy to bees. Incident occurred at 2000 today, . She notes pain at the sting site but denies difficulty speaking, o2 sats are 100% on RA. Patient did not take any medications before coming here as she states she could not find her epi-pen. On physical exam, there is a small localized red area at the middle of the upper back. During ED course, patient was given Prednisone 50 mg PO and Atarax 50 mg PO. Afterwards, patient reports improvement of Sx and has a desire to leave. She was prescribed prednisone and atarax. Patient to follow up with PCP within three days. She is agreeable with plan as discussed. - Diagnoses Provider Diagnoses: Allergic reaction to bee sting Discharge - Sign-Out/Discharge Documenting (check all that apply): Patient Departure - discharge Patient Received Moderate/Deep Sedation with Procedure: No - Discharge Plan Condition: Stable Disposition: HOME Prescriptions: hydrOXYzine HCL TAB* [Atarax 25 MG TAB*] 25 mg PO TID PRN #14 tab PRN Reason: Itching predniSONE TAB* [Deltasone 20 MG TAB*] 40 mg PO DAILY #6 tab Patient Education Materials: Insect Bite or Sting (ED), General Allergic Reaction (ED) Referrals: Rob Flores MD [Retired//Other] - 3 Days Care [facility] [Outside] - 3 Days Additional Instructions: PLEASE RETURN TO THE ED IMMEDIATELY FOR WORSENING OR CONCERNING SYMPTOMS. FOLLOW UP WITH PRIMARY CARE PHYSICIAN WITHIN 3 DAYS. - Attestation Statements Document Initiated by Scribe: Yes Documenting Scribe: COURTNEY KHNA Provider For Whom Scribe is Documenting (Include Credential): GOSIA BARRETT MD Scribe Attestation: COURTNEY Marcano, scribed for GOSIA BARRETT MD on 03/19/19 at 2224. Status of Scribe Document: Ready
[2019-03-19] MEDS ORDERED: predniSONE TAB* 50 MG PO ONE (20:57)
[2019-03-19] MEDS ORDERED: hydrOXYzine HCL TAB* 50 MG PO ONE (20:58)
[2019-03-19 22:23] VITALS: BP 121/82
== END 2019-03-19 22:22 | disposition home or self-care (01) ==
LOC: ED 20:29
DX: T63.441A Toxic effect of venom of bees, accidental (unintentional), initial encounter (principal); Y92.9 Unspecified place or not applicable; F17.210 Nicotine dependence, cigarettes, uncomplicated; J45.909 Unspecified asthma, uncomplicated; F41.9 Anxiety disorder, unspecified
CPT/HCPCS: 99282; A9270-GY; J7512

== ENCOUNTER 2019-04-30 14:29 | Emergency (ER) | payer SELFPAY ==
[2019-04-30] MEDS ORDERED: Tetan/Diph/Pertus SYR(Tdap)* 0.5 ML SYR(BOOSTRIX) use SYR IM ONE (17:31)
--- NOTE | 2019-04-30 17:35 | ED ---
Laceration/Wound HPI - HPI Summary HPI Summary: This pt is a 44 Y/O F presenting to [facility] with a CC of lacerations on her back she sustained after falling on throwing stars at 0200 this morning. She states that her ferret was on the roof of her house when she fell off a stool and landed on her throwing star target. She states that she had her son put duct tape and gauze over the wounds so she could go to work. She states that she was under the influence of alcohol when the incident occurred. She rates the pain a 9/10. She denies any fever, chills, SOB, V/N, abdominal pain, and headaches. She has no aggravating or alleviating symptoms. She has a PMHx of asthma, and states a social Hx of drinking alcohol and smoking tobacco. - History of Current Complaint Stated Complaint: BACK INJURY PER PT Hx Obtained From: Patient Hx Last Menstrual Period: current Onset/Duration: Lasting Hours - since 0200 04/30/19, Still Present Aggravating: Nothing Alleviating: Nothing Timing: Constant Onset Severity: Severe Current Severity: Severe Pain Intensity: 9 Pain Scale Used: 0-10 Numeric Associated Signs & Symptoms: Negative - fever, chills, SOB, V/N, abdominal pain , and headaches - Allergy/Home Medications Allergies/Adverse Reactions: Allergies Allergy/AdvReac Type Severity Reaction Status Date / Time bee pollen Allergy Anaphylatic Verified 05/17/18 01:09 Shock Egg Derived Allergy Anaphylatic Verified 05/17/18 01:09 Shock peanut oil Allergy Anaphylatic Verified 05/17/18 01:09 Shock raspberry Allergy Anaphylatic Verified 05/17/18 01:09 Shock mycin based med Allergy Eyes Uncoded 05/17/18 01:09 Itchy/Swollen/Red/Watery PMH/Surg Hx/FS Hx/Imm Hx Previously Healthy: Yes Endocrine/Hematology History: Denies: Hx Anticoagulant Therapy, Hx Diabetes, Hx Thyroid Disease Cardiovascular History: Denies: Hx Congestive Heart Failure, Hx Deep Vein Thrombosis, Hx Hypertension , Hx Myocardial Infarction, Hx Pacemaker/ICD Respiratory History: Reports: Hx Asthma Denies: Hx Chronic Obstructive Pulmonary Disease (COPD), Hx Lung Cancer, Hx Pneumonia, Hx Pulmonary Embolism GI History: Denies: Hx Gall Bladder Disease, Hx Gastrointestinal Bleed, Hx Ulcer, Hx Urosepsis History: Denies: Hx Kidney Stones, Hx Renal Disease Sensory History: Reports: Hx Contacts or Glasses Opthamlomology History: Reports: Hx Contacts or Glasses Neurological History: Denies: Hx Dementia, Hx Migraine, Hx Seizures, Hx Transient Ischemic Attacks (TIA) Psychiatric History: Reports: Hx Anxiety - On hydroxyzine. Denies: Hx Depression, Hx Schizophrenia, Hx Bipolar Disorder - Surgical History Surgical History: Yes Surgery Procedure, Year, and Place: 1999 TUBAL LIGATION Infectious Disease History: No Infectious Disease History: Reports: Hx of Known/Suspected MRSA - skin infection Denies: Hx Clostridium Difficile, Hx Hepatitis, Hx Human Immunodeficiency Virus (HIV), Hx Shingles, Hx Tuberculosis, History Other Infectious Disease, Traveled Outside the [place] in Last 30 Days - Family History Known Family History: Positive: Hypertension Negative: Cardiac Disease - Social History Occupation: Employed Full-time Lives: With Family Alcohol Use: Weekly Hx Substance Use: Yes Substance Use Type: Reports: Marijuana Substance Use Comment - Amount & Last Used: None x 5 years Hx Tobacco Use: Yes Smoking Status (MU): Light Every Day Tobacco Smoker Type: Cigarettes Amount Used/How Often: about 1/2 ppd Review of Systems Negative: Fever, Chills Negative: Chest Pain Negative: Shortness Of Breath Negative: Abdominal Pain, Vomiting, Nausea Skin: Other - lacerations on her R back Negative: Headache All Other Systems Reviewed And Are Negative: Yes Physical Exam - Summary Physical Exam Summary: General: Well-developed, Well-nourished female. No acute distress. HEENT: Normocephalic, Atraumatic. Eyes: Conjuctiva normal, PERRL. Ears: TMs within normal limits. Nares: (-) discharge, (-) erythema. Oropharynx: Clear, mucous membranes moist, (-) exudates. Neck: Soft, FROM, (-) lymphadenopathy, (-) thyromegaly, (-) JVD. Cardiovascular: Normal sinus rhythm, (-) murmur. Lungs: Clear to auscultation bilaterally (-) wheezes, (-) rales, (-) rhonchi. Abdomen: Soft, non-tender, non-distended, (-) organomegaly, normal bowel sounds. Back: (-) CVA tenderness Extremities: No edema. Skin: 3 lacerations a regular along the mid and R lower back. .6cms, .8 cms and 1.1 cms. Bleeding is controlled Neuro: Alert and oriented x3, no focal deficits. Psychiatric: Mood normal, affect normal. Triage Information Reviewed: Yes Vital Signs On Initial Exam: Initial Vitals Temp Pulse Resp BP Pulse Ox 98.9 F 86 16 127/83 98 04/30/19 14:31 04/30/19 14:31 04/30/19 14:31 04/30/19 14:31 04/30/19 14:31 Vital Signs Reviewed: Yes Diagnostics - Vital Signs Vital Signs Temp Pulse Resp BP Pulse Ox 04/30/19 14:31 98.9 F 86 16 127/83 98 - Laboratory Lab Statement: Any lab studies that have been ordered have been reviewed, and results considered in the medical decision making process. Laceration Repair Course/Dx - Course Course Of Treatment: This pt is a 44 Y/O F presenting to [facility] with a CC of lacerations on her back she sustained after falling on throwing stars at 0200 this morning. She states that her ferret was on the roof of her house when she fell off a stool and landed on her throwing star target. She states that she had her son put duct tape and gauze over the wounds so she could go to work. Her PE found 3 lacerations over her mid to R back measuring 0.6cms, 0.8cms, and 1.1cms. Bleeding was controled. 0. She received new dressings nd steri stripes to close the wounds. She was dishcarged honme after being given a tetanus shot with a Dx of back lacerations. - Clinical Impression Provider Diagnoses: Laceration of back Discharge ED - Sign-Out/Discharge Documenting (check all that apply): Patient Departure - discharge Patient Received Moderate/Deep Sedation with Procedure: No - Discharge Plan Condition: Stable Disposition: HOME Patient Education Materials: Laceration (ED), Skin Adhesive Care (ED) Referrals: [facility] [Outside] Additional Instructions: PLEASE RETURN TO THE EMERGENCY DEPARTMENT FOR ANY NEW OR WORSENING SYMPTOMS. FOLLOW UP WITH THE [facility] IN 1-3 DAYS TO RECEIVE REFERENCES FOR A PRIMARY CARE PHYSICIAN. - Billing Disposition and Condition Condition: STABLE Disposition: Home - Attestation Statements Document Initiated by Scribe: Yes Documenting Scribe: Finesse Howard Provider For Whom Scribe is Documenting (Include Credential): Zaynab Gonzalez MD Scribe Attestation: I, Finesse Howard, scribed for Zaynab Gonzalez MD on 04/30/19 at 1909. Scribe Documentation Reviewed: Yes Provider Attestation: The documentation as recorded by the scribe, Finesse Howard accurately reflects the service I personally performed and the decisions made by me, Zaynab Gonzalez MD Status of Scribe Document: Viewed
[2019-04-30 17:57] VITALS: BP 138/78
== END 2019-04-30 17:55 | disposition home or self-care (01) ==
LOC: ED 14:29
DX: S31.010A Laceration without foreign body of lower back and pelvis without penetration into retroperitoneum, initial encounter (principal); Z23 Encounter for immunization; W45.8XXA Other foreign body or object entering through skin, initial encounter; Y92.009 Unspecified place in unspecified non-institutional (private) residence as the place of occurrence of the external cause; J45.909 Unspecified asthma, uncomplicated; F41.9 Anxiety disorder, unspecified; F17.210 Nicotine dependence, cigarettes, uncomplicated; Z98.51 Tubal ligation status; Z88.1 Allergy status to other antibiotic agents; Z79.899 Other long term (current) drug therapy
CPT/HCPCS: 90471; 90715; 99281